=== PATIENT | male | born 1980 | race Caucasian/White ===

== ENCOUNTER 2018-08-03 13:56 | Inpatient (IN) | payer BC ==
[2018-08-03] MEDS ORDERED: NA CHLORIDE 0.9% 1,000 ML ONE ×2 (14:18→15:04)
[2018-08-03 14:47] LABS: Absolute Lymphocytes (CBC) 1.2 K/uL (0.7-4.9); Absolute Monocytes 1.7 K/uL (0.1-1.3); Absolute Neutrophil 13.2 K/uL (1.8-8.0); Basophils % 0.2 % (0-1.3); Eosinophils % 0.1 % (0-4.4); Hematocrit 38.4 % (39.6-49.0); Lymphocytes % 7.4 % (15.3-44.8); MCH 32.1 pg (27.0-35.0); MCV 93.7 fL (80-100); MPV 9.7 fL (7.6-11.3); Monocytes % 10.5 % (3.3-12.3)
--- NOTE | 2018-08-03 14:58 | RAD REPORT ---
EXAM DESCRIPTION: RAD - Chest Single View - 08/03/2018 2:36 pm CLINICAL HISTORY: Fever, syncope COMPARISON: None. TECHNIQUE: AP portable chest image was obtained 1428 hours . FINDINGS: Low lung volumes are noted. A focal consolidation is not identifiable on this limited exam ination. Heart and vasculature are magnified by body habitus and portable technique. Trachea is midli ne. No measurable pleural effusion and no pneumothorax. No acute bony abnormality seen. No acute aort ic findings suspected. IMPRESSION: Limited examination without evidence for pneumonia, failure or other acute cardiopulmona ry finding.
[2018-08-03 15:00] LABS: Potassium 3.8 mmol/L (3.5-5.1)
[2018-08-03 15:22] LABS: Urine Blood NEGATIVE (NEG); Urine Glucose NEGATIVE (NEG); Urine Protein 1+ (NEG); Urine pH 5.5 (5.0-7.0)
[2018-08-03 15:30] LABS: Urine RBC <5 /HPF (NONE SEEN)
[2018-08-03 15:31] LABS: Urine Bacteria 20-50 /HPF (NONE SEEN); Urine Culture Reflex Order REFLEXED; Urine Mucus SLIGHT /HPF (NONE SEEN)
[2018-08-03] MEDS ORDERED: CEFTRIAXONE/SWI 1gm 1 GM/10 ML SYR ONE (16:14)
--- NOTE | 2018-08-03 16:24 | ER ---
Nurse's Notes [facility] Name: Narciso Jolley Age: 38 yrs Sex: Male : 1980 Arrival Date: 08/03/2018 Time: 14:00 Bed 15 Private MD: Diagnosis: Urinary tract infection, site not specified;Hypotension Presentation: 08/03 14:00 Presenting complaint: EMS states: called out to [facility] for near syncopal em episode, pt was clammy, diaphoretic, A\T\O4 on scene, BP was 71/44, BGL 102, pt was has 18G IV in RAC, given 500 mL NS CANDY PACKER, pt denies CP or SOB, pt states was running a fever today, took a Tylenol 3 around 8 AM. Transition of care: patient was not received from another setting of care. Onset of symptoms was August 03, 2018. Risk Assessment: Do you want to hurt yourself or someone else? Patient reports no desire to harm self or others. Initial Sepsis Screen: Does the patient meet any 2 criteria? HR > 90 bpm. Does the patient have a suspected source of infection? No. Patient's initial sepsis screen is negative. Care prior to arrival: Medication(s) given: Normal saline infusion, 500 mL. 14:00 Method Of Arrival: EMS: [facility] em 14:10 Note I have read and agree with assessment by Ti Thibodeaux LVN. 5 14:10 Acuity: WYATT 2 dm5 Triage Assessment: 14:08 General: Appears in no apparent distress. comfortable, Behavior is calm, cooperative. em Pain: Denies pain. Historical: - Allergies: 14:07 No Known Allergies; em - Home Meds: 14:07 lisinopril 20 mg Oral tab [Active]; amlodipine 5 mg tab [Active]; acetaminophen-codeine em 300-30 mg Oral tab [Active]; - PMHx: 14:07 Hypertension; em - PSHx: 14:08 None; em - Immunization history:: Flu vaccine is not up to date. - Social history:: Smoking status: Patient/guardian denies using tobacco. - Ebola Screening: : Patient negative for fever greater than or equal to 101.5 degrees Fahrenheit, and additional compatible Ebola Virus Disease symptoms Patient denies exposure to infectious person Patient denies travel to an Ebola-affected area in the 21 days before illness onset No symptoms or risks identified at this time. - Family history:: not pertinent. - Hospitalizations: : No recent hospitalization is reported. Screenin:27 Abuse screen: Denies threats or abuse. Nutritional screening: No deficits noted. em Tuberculosis screening: No symptoms or risk factors identified. Fall Risk None identified. Assessment: 14:08 General: Appears in no apparent distress. comfortable, Behavior is calm, cooperative. em Pain: Denies pain. Neuro: Level of Consciousness is awake, alert, obeys commands, Oriented to person, place, time, situation, Moves all extremities. Speech is normal. Cardiovascular: Capillary refill < 3 seconds Patient's skin is warm and dry. Respiratory: Airway is patent Respiratory effort is even, unlabored, Respiratory pattern is regular, symmetrical. GI: Abdomen is flat, Patient currently denies nausea, vomiting. : No signs and/or symptoms were reported regarding the genitourinary system. EENT: No signs and/or symptoms were reported regarding the EENT system. Derm: Skin is intact, Skin is pink, warm \T\ dry. Musculoskeletal: Range of motion: intact in all extremities, Swelling absent. 14:10 General: The previous assessment is accurate, call light remains within reach. . ss 15:08 Reassessment: Patient appears in no apparent distress at this time. Patient and/or em family updated on plan of care and expected duration. Pain level reassessed. Patient is alert, oriented x 3, equal unlabored respirations, skin warm/dry/pink. Patient denies pain at this time. Patient states feeling better. 15:24 Reassessment: Dr. Sorto at bedside Patient denies pain at this time. em 16:10 Reassessment: Patient appears in no apparent distress at this time. Patient and/or em family updated on plan of care and expected duration. Pain level reassessed. Patient is alert, oriented x 3, equal unlabored respirations, skin warm/dry/pink. Patient denies pain at this time. Patient states feeling better. Patient states symptoms have improved. 16:59 Reassessment: Patient appears in no apparent distress at this time. Patient and/or em family updated on plan of care and expected duration. Pain level reassessed. Patient is alert, oriented x 3, equal unlabored respirations, skin warm/dry/pink. Patient denies pain at this time. Patient states feeling better. Patient states symptoms have improved. 18:00 Reassessment: Patient appears in no apparent distress at this time. Patient and/or em family updated on plan of care and expected duration. Pain level reassessed. Patient is alert, oriented x 3, equal unlabored respirations, skin warm/dry/pink. Patient denies pain at this time. Patient states feeling better. Patient states symptoms have improved. 18:28 Reassessment: Patient appears in no apparent distress at this time. Patient and/or em family updated on plan of care and expected duration. Pain level reassessed. Patient is alert, oriented x 3, equal unlabored respirations, skin warm/dry/pink. pt c/o chills, temp. 100.9, provider notified, new medication order Patient denies pain at this time. 19:00 Reassessment: Patient appears in no apparent distress at this time. Patient and/or jb4 family updated on plan of care and expected duration. Pain level reassessed. Patient is alert, oriented x 3, equal unlabored respirations, skin warm/dry/pink. Cardiovascular: Patient's skin is warm and dry. Respiratory: Airway is patent Respiratory effort is even, unlabored, Respiratory pattern is regular, symmetrical. 19:00 General: Appears in no apparent distress. comfortable, Behavior is calm, cooperative. [facility] Vital Signs: 14:08 BP 102 / 59; Pulse 92; Resp 16; Temp 99.1(O); Pulse Ox 97% on R/A; Weight 96.62 kg; em Height 5 ft. 10 in. (177.80 cm); Pain 0/10; 14:45 BP 96 / 59; Pulse 83; Resp 20; Pulse Ox 100% on R/A; Pain 0/10; em 15:19 BP 100 / 68; Pulse 89; Resp 18; Pulse Ox 100% on R/A; Pain 0/10; em 15:45 BP 99 / 65; Pulse 84; Resp 19; Pulse Ox 100% on R/A; Pain 0/10; em 16:40 BP 110 / 68; Pulse 87; Resp 18; Temp 99.3(O); Pulse Ox 98% on R/A; Pain 0/10; em 18:31 BP 117 / 74; Pulse 102; Resp 20; Temp 100.9(O); Pulse Ox 99% on R/A; em 19:30 BP 108 / 59; Pulse 101; Resp 18; Temp 100.0(O); Pulse Ox 99% on R/A; jb4 14:08 Body Mass Index 30.56 (96.62 kg, 177.80 cm) em ED Course: 14:00 Patient arrived in ED. rn 14:00 Claudio Sorto MD is Attending Physician. rn 14:00 Ti Thibodeaux LVN is Primary Nurse. em 14:08 Arm band placed on. em 14:11 Triage completed. dm5 14:16 Maintain EMS IV. Dressing intact. Good blood return noted. Site clean \T\ dry. Gauge \T\ em site: 18 RAC. 14:21 EKG done, by nuclear medical technologist. reviewed by Claudio Sorto MD. sm3 14:27 Patient has correct armband on for positive identification. Bed in low position. Call em light in reach. Side rails up X2. 14:37 XRAY Chest (1 view) In Process Unspecified. EDMS 15:11 Urine collected: clean catch specimen, adri colored. dh3 16:[address] sj 16:17 CT Stone Protocol In Process Unspecified. EDMS 16:23 Zohreh Rodriguez MD is Hospitalizing Provider. rn 19:53 No provider procedures requiring assistance completed. Patient admitted, IV remains in jb4 place. Administered Medications: 14:27 Drug: NS 0.9% 1000 ml Route: IV; Rate: 1000 ml; Site: right antecubital; em 15:17 Follow up: IV Status: Completed infusion; IV Intake: 1000ml em 15:17 Drug: NS 0.9% 1000 ml Route: IV; Rate: 1 bolus; Site: right antecubital; em 16:15 Follow up: IV Status: Completed infusion; IV Intake: 1000ml em 16:11 Drug: Rocephin - (cefTRIAXone) 1 grams Route: IVPB; Infused Over: 30 mins; Site: right ss antecubital; 16:30 Follow up: Response: No adverse reaction; IV Status: Completed infusion; IV Intake: 10mlem 18:28 Drug: Tylenol 1000 mg Route: PO; em 19:34 Follow up: Response: No adverse reaction; Temperature is decreased jb4 Intake: 15:17 IV: 1000ml; Total: 1000ml. em 16:15 IV: 1000ml; Total: 2000ml. em 16:30 IV: 10ml; Total: 2010ml. em Outcome: 16:23 Decision to Hospitalize by Provider. rn 19:53 Admitted to Med/surg accompanied by tech, via wheelchair, room 223, with chart, Report jb4 called to MADINA Ashley 19:53 Condition: stable 19:53 Instructed on the need for admit, Demonstrated understanding of instructions. 19:54 Patient left the ED. jb4 Signatures: Dispatcher [employer] EDKandi Ellsworth, RN RN dm5 Palma Sherman Edgar, PET GROOMER PET GROOMER em Claudio Sorto MD MD rn Smirch, Shelby, RN RN ss Bryson, James, RN RN jb4 Tiara Strauss 3 Steph Echols 3
--- NOTE | 2018-08-03 16:24 | EDPHYS ---
Physician Documentation [facility] Name: Narciso Jolley Age: 38 yrs Sex: Male : 1980 Arrival Date: 08/03/2018 Time: 14:00 Bed 15 Private MD: ED Physician Claudio Sorto HPI: 08/03 16:14 This 38 yrs old Male presents to ER via EMS with complaints of Near Syncope. rn 16:14 The patient has experienced near-syncope. Onset: The symptoms/episode began/occurred rn just prior to arrival. Duration: This was a single episode. The patient has not experienced similar symptoms in the past. Reports feeling sick since last night, + fever to 101, headache yesterday, sent from [place] [facility] for near syncope and low blood pressure. 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 Works night shifts, not sleeping much. No cough/vomiting/diarrhea/abd pain. No chest pain. NO headache/neck pain/neck stiffness. . Historical: - Allergies: 14:07 No Known Allergies; em - Home Meds: 14:07 lisinopril 20 mg Oral tab [Active]; amlodipine 5 mg tab [Active]; acetaminophen-codeine em 300-30 mg Oral tab [Active]; - PMHx: 14:07 Hypertension; em - PSHx: 14:08 None; em - Immunization history:: Flu vaccine is not up to date. - Social history:: Smoking status: Patient/guardian denies using tobacco. - Ebola Screening: : Patient negative for fever greater than or equal to 101.5 degrees Fahrenheit, and additional compatible Ebola Virus Disease symptoms Patient denies exposure to infectious person Patient denies travel to an Ebola-affected area in the 21 days before illness onset No symptoms or risks identified at this time. - Family history:: not pertinent. - Hospitalizations: : No recent hospitalization is reported. 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 Exam: 16:17 Constitutional: This is a well developed, well nourished patient who is awake, alert, rn laying flat, appears fatigued and diaphoretic Head/Face: Normocephalic, atraumatic. Eyes: Pupils equal round and reactive to light, extra-ocular motions intact. Lids and lashes normal. Conjunctiva and sclera are non-icteric and not injected. Cornea within normal limits. Periorbital areas with no swelling, redness, or edema. ENT: dry MM Neck: Trachea midline, no thyromegaly or masses palpated, and no cervical lymphadenopathy. Supple, full range of motion without nuchal rigidity, or vertebral point tenderness. No Meningismus. Cardiovascular: Regular rate and rhythm with a normal S1 and S2. No gallops, murmurs, or rubs. Normal PMI, no JVD. No pulse deficits. Respiratory: Lungs have equal breath sounds bilaterally, clear to auscultation and percussion. No rales, rhonchi or wheezes noted. No increased work of breathing, no retractions or nasal flaring. Abdomen/GI: Soft, non-tender, with normal bowel sounds. No distension or tympany. No guarding or rebound. No evidence of tenderness throughout. Skin: Warm, dry with normal turgor. Normal color with no rashes, no lesions, and no evidence of cellulitis. MS/ Extremity: Pulses equal, no cyanosis. Neurovascular intact. Full, normal range of motion. Equal circumference. Neuro: Awake and alert, GCS 15, oriented to person, place, time, and situation. Cranial nerves II-XII grossly intact. Motor strength 5/5 in all extremities. Sensory grossly intact. Cerebellar exam normal. Vital Signs: 14:08 BP 102 / 59; Pulse 92; Resp 16; Temp 99.1(O); Pulse Ox 97% on R/A; Weight 96.62 kg; em Height 5 ft. 10 in. (177.80 cm); Pain 0/10; 14:45 BP 96 / 59; Pulse 83; Resp 20; Pulse Ox 100% on R/A; Pain 0/10; em 15:19 BP 100 / 68; Pulse 89; Resp 18; Pulse Ox 100% on R/A; Pain 0/10; em 15:45 BP 99 / 65; Pulse 84; Resp 19; Pulse Ox 100% on R/A; Pain 0/10; em 16:40 BP 110 / 68; Pulse 87; Resp 18; Temp 99.3(O); Pulse Ox 98% on R/A; Pain 0/10; em 18:31 BP 117 / 74; Pulse 102; Resp 20; Temp 100.9(O); Pulse Ox 99% on R/A; em 19:30 BP 108 / 59; Pulse 101; Resp 18; Temp 100.0(O); Pulse Ox 99% on R/A; jb4 14:08 Body Mass Index 30.56 (96.62 kg, 177.80 cm) em MDM: 14:00 Patient medically screened. rn 16:17 Differential Diagnosis: idiopathic syncope, vasovagal episode, sepsis, infection, rn fever. Data reviewed: vital signs, nurses notes, lab test result(s), EKG, radiologic studies, plain films, and as a result, I will admit patient. Counseling: I had a detailed discussion with the patient and/or guardian regarding: the historical points, exam findings, and any diagnostic results supporting the discharge/admit diagnosis, lab results, radiology results, the need for further work-up and treatment in the hospital. Response to treatment: the patient's symptoms have mildly improved after treatment, and as a result, I will admit patient. Admission orders: after a detailed discussion of the patient's condition and case, the admit orders are written by me. ED course: Pt with acute renal failure, hypotension that required 3 bags of fluid to get to 100 systolic, + UTI, sent for ct stone given no other clear reason young male to have UTI. . 08/03 14: Order name: CBC with Diff rn 08/03 14: Order name: Basic Metabolic Panel; Complete Time: 15:01 rn 08/03 14: Order name: Urine Microscopic Only; Complete Time: 16:00 rn 08/03 14:01 Order name: Flu; Complete Time: 15:18 rn 08/03 14:01 Order name: Strep; Complete Time: 15:18 rn 08/03 14:01 Order name: [place] Screen Profile; Complete Time: 15:18 rn 08/03 14:02 Order name: CBC with Automated Diff; Complete Time: 15:18 EDMS 08/03 15:02 Order name: CK; Complete Time: 16:12 dm5 08/03 15:15 Order name: Urine Dipstick--Ancillary (enter results) eb 08/03 15:23 Order name: Urine Dipstick-Ancillary; Complete Time: 16:00 EDMS 08/03 15:24 Order name: Throat Culture EDHI 08/03 15:33 Order name: Urine Culture EDHI 08/03 16:23 Order name: Blood Culture Adult (2) rn 08/03 16:24 Order name: Procalcitonin rn 08/03 14:01 Order name: IV Saline Lock - Large Bore; Complete Time: 14:10 rn 08/03 14:01 Order name: Urine Dipstick-Ancillary (obtain specimen); Complete Time: 15:11 rn 08/03 14:01 Order name: EKG; Complete Time: 14:02 rn 08/03 14:01 Order name: EKG - Nurse/Tech; Complete Time: 14:27 rn 08/03 14:01 Order name: XRAY Chest (1 view); Complete Time: 15:01 rn 08/03 16:01 Order name: CT Stone Protocol; Complete Time: 16:46 rn Administered Medications: 14:27 Drug: NS 0.9% 1000 ml Route: IV; Rate: 1000 ml; Site: right antecubital; em 15:17 Follow up: IV Status: Completed infusion; IV Intake: 1000ml em 15:17 Drug: NS 0.9% 1000 ml Route: IV; Rate: 1 bolus; Site: right antecubital; em 16:15 Follow up: IV Status: Completed infusion; IV Intake: 1000ml em 16:11 Drug: Rocephin - (cefTRIAXone) 1 grams Route: IVPB; Infused Over: 30 mins; Site: right ss antecubital; 16:30 Follow up: Response: No adverse reaction; IV Status: Completed infusion; IV Intake: 10mlem 18:28 Drug: Tylenol 1000 mg Route: PO; em 19:34 Follow up: Response: No adverse reaction; Temperature is decreased jb4 Disposition: 08/03/18 16:23 Hospitalization ordered by Zohreh Rodriguez for Inpatient Admission. Preliminary diagnosis are Urinary tract infection, site not specified, Hypotension. - Bed requested for Telemetry/MedSurg (Inpatient). - Status is Inpatient Admission. jb4 - Condition is Stable. - Problem is new. - Symptoms have improved. UTI on Admission? Yes Signatures: Dispatcher [employer] EDTi Martinez, MERCHANDISE PICKUP/RECEIVING ASSOCIATE MERCHANDISE PICKUP/RECEIVING ASSOCIATE Claudio Hinds MD MD rn Girish, MADINA Macario RN ss Narciso Botello RN RN jb4 Ce Begum Corrections: (The following items were deleted from the chart) 18:31 16:23 Hospitalization Ordered by Zohreh Rodriguez MD for Inpatient Admission. Preliminary eb diagnosis is Urinary tract infection, site not specified; Hypotension. Bed requested for Telemetry/MedSurg (Inpatient). Status is Inpatient Admission. Condition is Stable. Problem is new. Symptoms have improved. UTI on Admission? Yes. rn 19:54 18:31 08/03/2018 16:23 Hospitalization Ordered by Zohreh Rodriguez MD for Inpatient jb4 Admission. Preliminary diagnosis is Urinary tract infection, site not specified; Hypotension. Bed requested for Telemetry/MedSurg (Inpatient). Status is Inpatient Admission. Condition is Stable. Problem is new. Symptoms have improved. UTI on Admission? Yes. eb
--- NOTE | 2018-08-03 16:42 | RAD REPORT ---
EXAM DESCRIPTION: CT - Stone Protocol - 08/03/2018 4:16 pm CLINICAL HISTORY: Abdominal pain. Urinary tract infection COMPARISON: None. TECHNIQUE: Computed axial tomography of the abdomen pelvis was obtained without oral or IV contrast. Lack of IV and oral contrast limits evaluation of solid organs, bowel, and vessels. Coronal reformat nichelle images were obtained and reviewed. All CT scans are performed using dose optimization technique as appropriate and may include automated exposure control or mA/KV adjustment according to patient size. FINDINGS: A renal calculus is not seen. An ureteral calculus is not noted. A bladder calculus is not present. The liver is enlarged. Fatty infiltration liver is seen The spleen, pancreas and adrenals appear grossly normal There is no evidence of diverticulitis. The appendix appears normal Small inguinal hernias contain fat. Small umbilical hernia is present IMPRESSION: Negative for a genitourinary calculus
[2018-08-03] MEDS ORDERED: ACETAMINOPHEN 500 MG TAB ONE (18:29)
[2018-08-03] MEDS ORDERED: ONDANSETRON 4 MG/2 ML VIAL IV PRN (19:56)
[2018-08-03] MEDS ORDERED: ACETAMINOPHEN 500 MG TAB PO PRN (19:56)
--- NOTE | 2018-08-03 21:20 | P.HP ---
Patient History Date of Service: 08/03/18 Reason for admission: near syncope History of Present Illness: 38 yr old male with hx of HTN admitted for near syncope. Per patient, he was at the [place] [facility] for his general check up when he felt really faint and almost passed out around 1 pm today. He stated that he does take tylenol #3 and flexeril for his chronic back pain. He said that he does not take it everyday but he did take one tylenol #3 at 1 am the previous night and at 8 am today. He also took a flexeril at 8 am today. He also takes lisinopril 20 mg and amlodipine 5 mg, [facility] he took this am. He has been working nights recently and has not been getting sleep as well. He stated that he had a headache and a fever of Tm of 101 previous day. In the ER, patient was initially hypotensive and felt light headed. He was given a total of 3 L IVF At the time of my exam, he was resting without any acute distress and the headache had completely resolved and he felt he was back to his baseline. He denied any cp, shortness of breath, focal weakness, speech or sensation changes or any vision changes. Allergies No Known Allergies Allergy (Unverified 08/03/18 17:53) - Past Medical/Surgical History Has patient received pneumonia vaccine in the past: No Diabetic: No -: hypertension -: chronic back pain - Family History Father -: Heart disease - Social History Smoking Status: Never smoker Alcohol use: Yes CD- Drugs: No Caffeine use: Yes Place of Residence: Home Review of Systems General: Fever, As per HPI Eyes: Unremarkable ENT: Unremarkable Respiratory: Unremarkable Cardiovascular: Light Headedness, As per HPI Gastrointestinal: Unremarkable Genitourinary: Unremarkable Musculoskeletal: Unremarkable Integumentary: Unremarkable Neurological: Unremarkable Lymphatics: Unremarkable Physical Examination - Vital Signs Temperature: 100.0 F Blood Pressure: 108/59 Pulse: 101 Respirations: 18 - Physical Exam General: Alert, In no apparent distress HEENT: Atraumatic, PERRLA, Mucous membr. moist/pink, EOMI, Sclerae nonicteric Neck: Supple, 2+ carotid pulse no bruit, No LAD, Without JVD or thyroid abnormality Respiratory: Clear to auscultation bilaterally, Normal air movement Cardiovascular: Regular rate/rhythm, Normal S1 S2 Gastrointestinal: Normal bowel sounds, No tenderness Musculoskeletal: No tenderness Integumentary: No rashes Neurological: Normal gait, Normal speech, Normal strength at 5/5 x4 extr, Normal tone, Sensation intact, Cranial nerves 3-12 intact, Normal reflexes 2+, Normal affect Lymphatics: No axilla or inguinal lymphadenopathy - Studies Laboratory Data (last 24 hrs) 08/03/18 14:23: Sodium 141, Potassium 3.8, BUN 20 H, Creatinine 2.00 H, Glucose 116 H 08/03/18 14:23: WBC 16.1 H, Hgb 13.1 L, Hct 38.4 L, Plt Count 223 Microbiology Data (last 24 hrs): 08/03/18 14:23 Throat Group A Streptococcus Rapid Screen - Final 08/03/18 14:23 Nasopharnyx Influenza Type A Antigen Screen - Final 08/03/18 14:23 Nasopharnyx Influenza Type B Antigen Screen - Final Assessment and Plan - Problems (Diagnosis) (1) Hypotension Current Visit: Yes Status: Acute Plan: Patient admitted for hypotension. BP seems to have responded after IVFs Continue fluids, encourage PO hydration Hold BP medications at this time It was thought that he may have had nephrolithiasis, though CT stone protocol negative for kidney stone (2) Near syncope Current Visit: Yes Status: Acute Plan: Resolved. Continue IVFs (3) Chronic back pain Current Visit: Yes Status: Acute (4) Hypertension Current Visit: Yes Status: Acute Plan: Hold BP medications at this time. Will restart if needed. Discharge Plan: Home Plan to discharge in: 24 Hours - Advance Directives Does patient have a Living Will: No Does patient have a Durable POA for Healthcare: No
[2018-08-03] MEDS ORDERED: POTASSIUM CL SA 10 MEQ TAB PO ONE (22:48)
[2018-08-04] MEDS: HYDROCODONE/APAP 10/325 TAB PO PRN ×2 (05:11→16:24)
[2018-08-04 05:15] LABS: Absolute Lymphocytes (CBC) 1.4 K/uL (0.7-4.9); Absolute Monocytes 1.2 K/uL (0.1-1.3); Absolute Neutrophil 11.8 K/uL (1.8-8.0); Basophils % 0.2 % (0-1.3); Eosinophils % 0.2 % (0-4.4); Hematocrit 37.1 % (39.6-49.0); Lymphocytes % 9.7 % (15.3-44.8); MCH 32.4 pg (27.0-35.0); MCV 94.1 fL (80-100); MPV 9.4 fL (7.6-11.3); Monocytes % 8.6 % (3.3-12.3); RBC Red Blood Cell Count 3.95 M/uL (4.33-5.43)
[2018-08-04 05:44] LABS: Albumin 3.5 g/dL (3.4-5.0); Bilirubin Total 0.7 mg/dL (0.2-1.0); Phosphorus 2.9 mg/dL (2.5-4.9); Potassium 3.7 mmol/L (3.5-5.1); Protein, Total 6.7 g/dL (6.4-8.2)
[2018-08-04] MEDS ORDERED: POTASSIUM CL SA 10 MEQ TAB PO ONE (05:55)
[2018-08-04] MEDS: ENOXAPARIN 40 MG/0.4 ML SQ SCH (08:55)
--- NOTE | 2018-08-04 11:50 | P.PN ---
Subjective Date of Service: 08/04/18 Chief Complaint: near syncope Subjective: Tolerating diet, Ambulating, Improving, Doing well Review of Systems 10-point ROS is otherwise unremarkable Physical Examination - Vital Signs Temperature: 100.0 F Blood Pressure: 108/59 Pulse: 101 Respirations: 18 Pulse Ox (%): 98 - Physical Exam General: Alert, In no apparent distress HEENT: Atraumatic, PERRLA, EOMI Neck: Supple, JVD not distended Respiratory: Clear to auscultation bilaterally, Normal air movement Cardiovascular: Regular rate/rhythm, Normal S1 S2 Gastrointestinal: Normal bowel sounds, No tenderness Musculoskeletal: No tenderness Integumentary: No rashes Neurological: Normal speech, Normal tone, Normal affect Lymphatics: No axilla or inguinal lymphadenopathy - Studies Laboratory Data (last 24 hrs) 08/03/18 14:23: Sodium 141, Potassium 3.8, BUN 20 H, Creatinine 2.00 H, Glucose 116 H 08/03/18 14:23: WBC 16.1 H, Hgb 13.1 L, Hct 38.4 L, Plt Count 223 Microbiology Data (last 24 hrs): 08/03/18 14:23 Throat Group A Streptococcus Rapid Screen - Final 08/03/18 14:23 Nasopharnyx Influenza Type A Antigen Screen - Final 08/03/18 14:23 Nasopharnyx Influenza Type B Antigen Screen - Final Medications List Reviewed: Yes Assessment And Plan - Current Problems (Diagnosis) (1) Sepsis Current Visit: Yes Status: Acute Plan: Sepsis with Hypotension -On IV abx at this time -Pending Cultures for blood and urine -Hypotension resolved now Qualifiers: Sepsis type: sepsis due to unspecified organism Qualified Code(s): A41.9 - Sepsis, unspecified organism (2) UTI (urinary tract infection) Current Visit: Yes Status: Acute Plan: UA with UTI -Culture + for Gram _ rods for now -IV rocephin Qualifiers: Urinary tract infection type: acute cystitis Hematuria presence: without hematuria Qualified Code(s): N30.00 - Acute cystitis without hematuria (3) Hypertension Current Visit: Yes Status: Chronic Plan: Currently stable Qualifiers: Hypertension type: essential hypertension Qualified Code(s): I10 - Essential (primary) hypertension Discharge Plan: Home Plan to discharge in: 48 Hours - Code Status/Comfort Care Code Status Assessed: Yes Critical Care: No
--- NOTE | 2018-08-04 12:28 | EKG ---
Test Date: 2018-08-03 Test Time: 14:12:27 Human Services Manager: JAMES MEASUREMENT RESULTS: Intervals: Rate: 88 OR: 160 QRSD: 110 QT: 338 QTc: 408 [place]: P: 36 OR: 160 QRS: 87 T: 38 INTERPRETIVE STATEMENTS: Normal sinus rhythm Normal ECG No previous ECG available for comparison Electronically Signed On 08-04-18 12:25:54 CDT by Riley Boyd
[2018-08-04] MEDS: PANTOPRAZOLE 40MG TABLET PO SCH (16:24)
[2018-08-04] MEDS ORDERED: CEFTRIAXONE/SWI 1gm 1 GM/10 ML SYR IV SCH (17:00)
[2018-08-05] MEDS: HYDROCODONE/APAP 10/325 TAB PO PRN (02:10)
[2018-08-05] MEDS: PANTOPRAZOLE 40MG TABLET PO SCH (05:55)
[2018-08-05 06:23] LABS: Albumin 3.6 g/dL (3.4-5.0); Bilirubin Total 0.5 mg/dL (0.2-1.0); Potassium 3.8 mmol/L (3.5-5.1); Protein, Total 7.1 g/dL (6.4-8.2)
[2018-08-05] MEDS ORDERED: POTASSIUM 25 MEQ EFFERV TAB PO ONE (06:27)
[2018-08-05 06:28] LABS: Absolute Lymphocytes (CBC) 1.7 K/uL (0.7-4.9); Absolute Monocytes 1.1 K/uL (0.1-1.3); Absolute Neutrophil 5.7 K/uL (1.8-8.0); Basophils % 0.7 % (0-1.3); Eosinophils % 1.5 % (0-4.4); Hematocrit 37.9 % (39.6-49.0); Lymphocytes % 19.2 % (15.3-44.8); MCH 32.8 pg (27.0-35.0); MPV 9.6 fL (7.6-11.3); Monocytes % 12.3 % (3.3-12.3); RBC Red Blood Cell Count 4.08 M/uL (4.33-5.43)
[2018-08-05] MEDS: ENOXAPARIN 40 MG/0.4 ML SQ SCH (08:31)
--- NOTE | 2018-08-05 15:15 | P.DS ---
Admission Date: 08/03/18 Discharge Date: 08/05/18 Disposition: ROUTINE DISCHARGE Discharge Condition: GOOD Reason for Admission: near syncope - Problems (1) Sepsis Status: Acute Qualifiers: Sepsis type: sepsis due to unspecified organism Qualified Code(s): A41.9 - Sepsis, unspecified organism (2) UTI (urinary tract infection) Status: Acute Qualifiers: Urinary tract infection type: acute cystitis Hematuria presence: without hematuria Qualified Code(s): N30.00 - Acute cystitis without hematuria (3) Hypertension Status: Chronic Qualifiers: Hypertension type: essential hypertension Qualified Code(s): I10 - Essential (primary) hypertension Brief History of Present Illness: 38 yr old male with hx of HTN admitted for near syncope. Per patient, [facility] up when he felt really faint and almost passed out around 1 pm today. He stated that he does take tylenol #3 and flexeril for his chronic back pain. He said that he does not take it everyday but he did take one tylenol #3 at 1 am the previous night and at 8 am today. He also took a flexeril at 8 am today. He also takes lisinopril 20 mg and amlodipine 5 mg, whihc he took this am. He has been working nights recently and has not been getting sleep as well. He stated that he had a headache and a fever of Tm of 101 previous day. In the ER, patient was initially hypotensive and felt light headed. He was given a total of 3 L IVF At the time of my exam, he was resting without any acute distress and the headache had completely resolved and he felt he was back to his baseline. He denied any cp, shortness of breath, focal weakness, speech or sensation changes or any vision changes. Hospital Course: Overall during the hospital stay patient remained stable Patient was initially admitted to the hospital for generalized weakness, fever, near syncopal episode. Patient was found to be hypotensive on admission. Patient had diagnosis of sepsis most likely secondary to UTI while here in the hospital. Patient's UA was positive for E. coli and was thus initially started on IV Rocephin and was switched over to p.o. Levaquin. Patient had marked improvement in the hospital after IV fluids and IV antibiotics and thus was discharged home on p.o. antibiotics once the micro was positive for E. coli. Patient had no other complaints to offer while here in the hospital. Patient was asked to continue following up with primary care provider in about 2 weeks post discharge. Patient was asked to continue taking Levaquin for total of 7 days post discharge. Vital Signs/Physical Exam: Temp Pulse Resp BP Pulse Ox 98.5 F 92 H 18 134/89 99 08/05/18 12:00 08/05/18 12:00 08/05/18 12:00 08/05/18 12:00 08/05/18 12:00 General: Alert, In no apparent distress HEENT: Atraumatic, PERRLA, EOMI Neck: Supple, JVD not distended Respiratory: Clear to auscultation bilaterally, Normal air movement Cardiovascular: Regular rate/rhythm, Normal S1 S2 Gastrointestinal: Normal bowel sounds, No tenderness Musculoskeletal: No tenderness Integumentary: No rashes Neurological: Normal speech, Normal tone, Normal affect Lymphatics: No axilla or inguinal lymphadenopathy Laboratory Data at Discharge: WBC 8.7 K/uL (4.3-10.9) D 08/05/18 05:44 Hgb 13.4 g/dL (13.6-17.9) L 08/05/18 05:44 Hct 37.9 % (39.6-49.0) L 08/05/18 05:44 Plt Count 221 K/uL (152-406) 08/05/18 05:44 Sodium 141 mmol/L (136-145) 08/05/18 05:44 Potassium 3.8 mmol/L (3.5-5.1) 08/05/18 05:44 BUN 11 mg/dL (7-18) 08/05/18 05:44 Creatinine 1.20 mg/dL (0.55-1.3) 08/05/18 05:44 Glucose 91 mg/dL (74-106) 08/05/18 05:44 Phosphorus 2.9 mg/dL (2.5-4.9) 08/04/18 04:55 Magnesium 2.0 mg/dL (1.8-2.4) 08/04/18 04:55 Total Bilirubin 0.5 mg/dL (0.2-1.0) 08/05/18 05:44 AST 18 U/L (15-37) 08/05/18 05:44 ALT 49 U/L (12-78) 08/05/18 05:44 Alkaline Phosphatase 55 U/L (45-117) 08/05/18 05:44 Home Medications: Amlodipine [Norvasc*] 5 mg PO BEDTIME 08/03/18 Lisinopril [Prinivil*] 20 mg PO DAILY 08/03/18 levoFLOXacin [Levaquin] 500 mg PO DAILY #14 tab 08/05/18 New Medications: levoFLOXacin [Levaquin] 500 mg PO DAILY #14 tab Patient Discharge Instructions: Please f.u with PCP in 1 to 2 week post discharge Diet: Regular Activity: Ad mikael
== END 2018-08-05 13:11 | disposition home or self-care (01) | DRG 872 ==
LOC: ER 13:56 → ERHOLD 17:46 → 2ND 19:43
PROVIDERS: ADMIT Family Medicine; ATTEND Family Medicine
DX: A41.9 Sepsis, unspecified organism (principal); N30.00 Acute cystitis without hematuria; R55 Syncope and collapse; B96.20 Unspecified Escherichia coli [E. coli] as the cause of diseases classified elsewhere; I95.9 Hypotension, unspecified; I10 Essential (primary) hypertension; G89.29 Other chronic pain; M54.5 Low back pain
CPT/HCPCS: 36415; 71045; 74176; 76377; 80048; 80053; 81003; 81015; 82550; 83735; 84100; 84145; 85025; 86308; 87040; 87070; 87077; 87081; 87086; 87088; 87186; 87804; 93005; 94760; 96361; 96365; 99285; J0696; J1650; J7030

== ENCOUNTER 2024-10-25 09:43 | Day surgery (SDC) | payer BC ==
[2024-10-23 08:58] LABS: Anion Gap 4.3 mEq/L (5.0-15.0); Potassium 4.3 mEq/L (3.5-5.1)
--- NOTE | 2024-10-24 11:52 | EKG ---
Test Date: 2024-10-23 Test Time: 09:31:50 Carburetor Mechanic: ESVIN MEASUREMENT RESULTS: Intervals: Rate: 84 WI: 162 QRSD: 104 QT: 336 QTc: 397 [place]: P: 30 WI: 162 QRS: 107 T: 3 INTERPRETIVE STATEMENTS: Normal sinus rhythm Rightward axis Borderline ECG Compared to ECG 08/03/2018 14:12:27 Right-axis deviation now present Electronically Signed On 10-24-24 11:51:15 WASHING MACHINE MECHANIC by Kraig Sheldon
--- NOTE | 2024-10-25 10:36 | RAD REPORT ---
EXAM: Extremity Nonvascular Complete HISTORY: repeat pre op testing COMPARISON: 10/24/2024 TECHNIQUE: Sonographic grayscale and color flow imaging of the left lateral posterior upper neck greg on including the region of interest as described by the patient. FINDINGS: There are 2 prominent lymph nodes with thickened cortices present in the region of interest, the larg er of which measures 13 mm. No soft tissue mass or fluid collection.
[2024-10-25] MEDS ORDERED: propofoL 200 MG/20 ML VIAL IV ONE (10:43)
[2024-10-25] MEDS ORDERED: MIDAZOLAM HCL 2 MG/2 ML INJ ONE (10:43)
[2024-10-25] MEDS ORDERED: KETOROLAC 30 MG/ML INJ ONE (10:43)
[2024-10-25] MEDS ORDERED: dexAMETHasone 10 MG/ML VIAL ONE (10:43)
[2024-10-25] MEDS ORDERED: FENTANYL CITR 100 MCG/2 ML ONE (10:43)
[2024-10-25] MEDS ORDERED: ONDANSETRON 4 MG/2 ML VIAL ONE (10:43)
[2024-10-25] MEDS ORDERED: ROCURONIUM 50 MG/5 ML VIAL IV ONE (10:44)
[2024-10-25] MEDS ORDERED: LIDOCAINE 2% MPF 5 ML VIAL ONE (10:44)
[2024-10-25] MEDS: Ringers Lactate 1,000 ML IV ONE (10:50)
[2024-10-25] MEDS: CEFAZOLIN SODIUM 2 GM/VIAL ONE (10:59)
[2024-10-25] MEDS: LIDOCAINE HCL/EPINEPHRINE 20 ML MDV ONE (11:27)
--- NOTE | 2024-10-25 11:44 | P.OP ---
Preoperative diagnosis: LEFT Posterior Lateral Scalp Infected Cyst Postoperative diagnosis: LEFT Posterior Lateral Scalp Infected Cyst Primary procedure: Debridement of LEFT Posterior Lateral Scalp Infected Cyst Anesthesia: GETA + Local Estimated blood loss: <10cc Specimen: Cultures, Debridement Tissue Findings: ~ 2cm x 1.5cm scalp infected cyst to muscle Complications: None Transferred to: Recovery Room Condition: Good
[2024-10-25] MEDS: HYDROMORPHONE HCL 1 MG/ML INJ ONE ×2 (12:10→12:20)
[2024-10-25] MEDS: FENTANYL CITR 100 MCG/2 ML ONE ×2 (12:30→12:55)
[2024-10-25] MEDS: MIDAZOLAM HCL 2 MG/2 ML INJ ONE (12:40)
[2024-10-25] MEDS: HYDROCODONE/APAP 10/325 TAB ONE (13:36)
[2024-10-25 14:59] VITALS: BP 140/73; TEMP 98.3; O2SAT 97
--- NOTE | 2024-10-25 16:20 | OP ---
Date of Procedure: 10/25/2024 Surgeon: Leodan García MD, Preoperative Diagnosis: Left posterior scalp infected cyst. Postoperative Diagnosis: Left posterior scalp infected cyst. Procedure: Debridement of left posterior scalp infected cyst. Anesthesia: General endotracheal plus local 1% lidocaine with epinephrine as well as 10 cc. Specimen: Culture sent both aerobic and anaerobic speciation. Debridement tissue. Findings: Approximately 2 cm x 1.5 cm infected scalp cyst extending to the muscle. Complications: None. Disposition: Patient was transferred to recovery room in good condition. Procedure In Detail: After informed consent was obtained, patient was brought to the operating room, prepped and draped in usual sterile fashion. After adequate anesthesia achieved, an area of drainin g cyst posterior to the ear was located on the left side of the scalp. This was anesthetized with 1% lidocaine down to subcutaneous tissues. All the elliptical incision circumferentially around the dr aining site of the infected cyst of the scalp as described above. All the way down to subcutaneous t issues. I then removed all nonviable tissue. Follicular material consistent with a Pilar cyst was r emoved at this point, sent off for pathologic examination. The area was copiously irrigated and cure tted until completely clear. Bleeding was controlled with electrocautery and pressure as well as 1% lidocaine with epinephrine. The area was copiously irrigated once again and then packed with Vashe s oaked 0.25 inch packing and sterile dressing placed over top. The patient tolerated the procedure we ll without incident or complication, transferred to PACU in good condition. All counts were correct at the end of the case. ALEX/ELANA Voice ID: [id number] Report ID: [id number]
== END 2024-10-25 14:35 | disposition home or self-care (01) ==
LOC: OR 09:43
PROVIDERS: ATTEND Surgery
PROC: 0JB00ZZ Excision of Scalp Subcutaneous Tissue and Fascia, Open Approach (ICD-10-PCS; principal; 2024-10-25 11:45)
DX: L72.0 Epidermal cyst (principal)
CPT/HCPCS: 93005; 87070; 80048; 36415; 87205 ×2; 88305; 87075; 87077; 87186; 76881; 11422; J2704; J2003; J2250 ×2; J3010 ×3; J1100; J1171 ×2; J2405; J7120; 88304